=== PATIENT | male | born 1935 | race Caucasian/White ===

== ENCOUNTER → 2018-01-02 10:30 | Outpatient (CLI) | payer MEDICARE, BC, SELFPAY | PROVIDERS: PCP Emergency Medicine; Visit Provider Urology | DX: N40.1 Benign prostatic hyperplasia with lower urinary tract symptoms (principal); R33.8 Other retention of urine; N39.41 Urge incontinence | CPT/HCPCS: 99213 ==

== ENCOUNTER → 2018-01-30 13:59 | Outpatient (BNVA) | payer MEDICARE, BC, SELFPAY | PROVIDERS: Visit Provider Urology | DX: R97.20 Elevated prostate specific antigen [PSA] (principal); N40.1 Benign prostatic hyperplasia with lower urinary tract symptoms; N13.8 Other obstructive and reflux uropathy | CPT/HCPCS: 99213 ==

== ENCOUNTER → 2018-09-25 12:40 | Outpatient (BNVA) | payer MEDICARE, BC, SELFPAY | PROVIDERS: PCP Emergency Medicine; Visit Provider Urology | DX: R97.20 Elevated prostate specific antigen [PSA] (principal); R35.1 Nocturia | CPT/HCPCS: 99213 ==

== ENCOUNTER 2018-09-25 13:43 | Outpatient (CLI) | payer MEDICARE, BC, SELFPAY ==
[2018-09-26 09:49] LABS: PSA, Diagnostic 10.4 ng/ml (0-6.5)
== END 2018-09-25 14:03 ==
PROVIDERS: PCP Emergency Medicine; Visit Provider Urology
DX: N40.1 Benign prostatic hyperplasia with lower urinary tract symptoms (principal)
CPT/HCPCS: 36415; 99213; 84153

== ENCOUNTER → 2019-01-22 13:04 | Outpatient (BNVA) | payer MEDICARE, BC, SELFPAY | PROVIDERS: PCP Emergency Medicine; Visit Provider Nurse Practitioner Gerontology | DX: R97.20 Elevated prostate specific antigen [PSA] (principal); N40.1 Benign prostatic hyperplasia with lower urinary tract symptoms; N13.8 Other obstructive and reflux uropathy | CPT/HCPCS: 51798; 99213 ==

== ENCOUNTER 2019-09-18 03:32 | Outpatient (CLI) | payer MEDICARE, BC, SELFPAY ==
[2019-09-19 08:33] LABS: PSA, Screening 8.6 ng/mL (0.0-6.5)
== END 2019-09-18 03:52 ==
PROVIDERS: Nurse Practitioner Gerontology; PCP Emergency Medicine; Visit Provider Urology
DX: R97.20 Elevated prostate specific antigen [PSA] (principal); Z12.5 Encounter for screening for malignant neoplasm of prostate
CPT/HCPCS: 36415; 84153

== ENCOUNTER → 2019-09-24 12:58 | Outpatient (BNVA) | payer MEDICARE, BC, SELFPAY | PROVIDERS: PCP Emergency Medicine; Referring Provider Emergency Medicine; Visit Provider Urology | DX: N40.1 Benign prostatic hyperplasia with lower urinary tract symptoms (principal); N13.8 Other obstructive and reflux uropathy; R97.20 Elevated prostate specific antigen [PSA] | CPT/HCPCS: 99213 ==

== ENCOUNTER → 2019-10-22 13:27 | Outpatient (BNVA) | payer MEDICARE, BC, SELFPAY | PROVIDERS: PCP Emergency Medicine; Referring Provider Emergency Medicine; Visit Provider Urology | DX: N40.1 Benign prostatic hyperplasia with lower urinary tract symptoms (principal); N13.8 Other obstructive and reflux uropathy; R35.0 Frequency of micturition | CPT/HCPCS: 99213 ==

== ENCOUNTER → 2019-11-22 14:26 | Outpatient (BNVA) | payer MEDICARE, BC, SELFPAY | PROVIDERS: PCP Emergency Medicine; Referring Provider Emergency Medicine; Visit Provider Urology | DX: N40.1 Benign prostatic hyperplasia with lower urinary tract symptoms (principal); N13.8 Other obstructive and reflux uropathy | CPT/HCPCS: 99213 ==

== ENCOUNTER 2020-02-21 01:49 | Outpatient (CLI) | payer MEDICARE, BC, SELFPAY | END 2020-02-21 02:09 | PROVIDERS: PCP Emergency Medicine; Visit Provider Emergency Medicine | DX: N40.1 Benign prostatic hyperplasia with lower urinary tract symptoms (principal); N13.8 Other obstructive and reflux uropathy; I10 Essential (primary) hypertension; R97.20 Elevated prostate specific antigen [PSA] | CPT/HCPCS: 99213 ==

== ENCOUNTER 2020-02-21 10:32 | Outpatient (REF) | payer MEDICARE, BC, SELFPAY ==
[2020-02-21 11:32] LABS: Calculated LDL 75 mg/dL (<100); Cholesterol 140 mg/dL (<200); HDL Cholesterol 47 mg/dL (40-60); Triglyceride 92 mg/dL (<150)
[2020-02-21 18:11] LABS: PSA, Diagnostic 8.9 ng/mL (0.0-6.5)
== END 2020-02-21 10:52 ==
LOC: LBN 10:32
PROVIDERS: PCP Emergency Medicine; Visit Provider Urology
DX: I10 Essential (primary) hypertension (principal); R97.20 Elevated prostate specific antigen [PSA]
CPT/HCPCS: 80061; 84153

== ENCOUNTER 2020-03-09 11:09 | Outpatient (CLI) | payer MEDICARE, BC, SELFPAY ==
--- NOTE | 2020-03-09 10:45 | DI.RAD_ITS ---
EXAM: XR SHOULDER LT COMPLETE 2+V CLINICAL HISTORY: left shoulder pain. TECHNIQUE: 2D digital imaging was performed. COMPARISON: No exams were available for comparison FINDINGS: BONES: No acute fracture is present. No bony destructive lesion is seen. JOINTS: Mild degenerative changes are seen at the glenohumeral and acromioclavicular joints. SOFT TISSUE: Normal. IMPRESSION: Degenerative changes of the left shoulder. DATA REPOSITORY: RADIATION DOSE DELIVERED:
--- NOTE | 2020-03-09 10:45 | DI.RAD_ITS ---
EXAM: XR SHOULDER RT COMPLETE 2+V CLINICAL HISTORY: right shoulder pain. TECHNIQUE: 2D digital imaging was performed. COMPARISON: No exams were available for comparison FINDINGS: BONES: No acute fracture is present. No bony destructive lesion is seen. JOINTS: Mild degenerative changes are seen at the acromioclavicular and glenohumeral joints. There i s no dislocation. SOFT TISSUE: Normal. IMPRESSION: Mild degenerative changes of the right shoulder. DATA REPOSITORY: RADIATION DOSE DELIVERED:
== END 2020-03-09 11:29 ==
PROVIDERS: PCP Emergency Medicine; Referring Provider Emergency Medicine; Visit Provider Student in an Organized Health Care Education/Training Program
DX: M19.011 Primary osteoarthritis, right shoulder (principal); M19.012 Primary osteoarthritis, left shoulder
CPT/HCPCS: 99203; 99214; 73030

== ENCOUNTER 2020-04-03 03:40 | Outpatient (CLI) | payer MEDICARE, BC, SELFPAY ==
[2020-04-04 12:05] LABS: SARS-CoV-2 RNA Not Detected (NotDetected); SARS-CoV-2 RNA Source Nasal/Nares
== END 2020-04-03 04:00 ==
PROVIDERS: PCP Emergency Medicine; Visit Provider Student in an Organized Health Care Education/Training Program
DX: Z11.59 Encounter for screening for other viral diseases (principal); Z01.818 Encounter for other preprocedural examination
CPT/HCPCS: U0003

== ENCOUNTER 2020-04-08 08:51 | Day surgery (SDC) | payer MEDICARE, BC, SELFPAY ==
[2020-04-08] VITALS (10 sets, daily range): BP systolic 112–149; BP diastolic 56–81; PULSE 50–87; RESP 14–18; TEMP 36.1–36.7; O2SAT 93–99
[2020-04-08] MEDS: Lactated Ringers 1,000 ML 80 ML IV (09:35)
--- NOTE | 2020-04-08 09:58 | PDOC.DSDIS_ITS ---
Discharge Plan Disposition Patient Disposition: HOME Condition: Good Discharge Details Reason For Visit: Right Rotator Cuff Tendinitis and SLAP tear Attending Provider: Kofi Bernard Primary Care Provider: Jean-Pierre Espino Home Meds and New Rx's Prescriptions: New acetaminophen 500 mg tablet 1,000 mg PO Q8H PRN (Reason: pain) Qty: 90 RF: 3 ibuprofen 600 mg tablet 600 mg PO TID PRNQty: 90 RF: 3 oxycodone 5 mg tablet 5 mg PO Q6H PRN PRNQty: 12 RF: 0 Continued tamsulosin 0.4 mg capsule 0.8 mg PO DAILY Qty: 180 RF: 3 potassium chloride 10 mEq capsule, extended release 10 meq PO DAILY RF: 0 losartan 100 mg tablet 100 mg PO DAILY RF: 0 hydrochlorothiazide 25 mg tablet 25 mg PO DAILY RF: 0 amlodipine 5 mg tablet 5 mg PO DAILY RF: 0 Centrum Silver Men 300-600-300 mcg tablet 1 tab PO DAILY RF: 0 magnesium 250 mg tablet 250 mg PO DAILY RF: 0 solifenacin [Vesicare] 10 mg tablet 10 mg PO DAILY Qty: 90 RF: 4 melatonin 5 MG tablet 5 mg PO HS RF: 0 cod liver oil (bulk) 1 ML oil 1 ml Miscellaneous DAILY RF: 0 pravastatin 40 mg tablet 40 mg PO HS Qty: 90 RF: 3 aspirin [Aspir-81] 81 MG tablet,delayed release (DR/EC) 81 mg PO DAILY RF: 0 diphenhydramine-acetaminophen [Tylenol PM Extra Strength] 1 EACH tablet 1 tab PO HS RF: 0 Discharge Instructions Stand Alone Forms: Marco Antonio Wyatt w/BT Referrals: Kofi Bernard MD [ [facility] ST[facility]FF [facility]YSICIAN] - Equipment/Supplies: Sling Activity:: Gentle activity as tolerated but no lifting > 3 lbs Remove Dressings/Wound Care:: 72 hours Shower/Bathe:: 72 hours Diet:: As Tolerated Discharge Orders Discharge Orders: Discharge Order (Routine); Ordered 04/08/20 Ordered By: Kofi Bernard DS: Diagnosis Discharge Diagnosis (1) Right rotator cuff tear: Status: Acute (2) Biceps tendinopathy of right upper extremity: Status: Acute
[2020-04-08] MEDS: ceFAZolin 2 GM/50 ML BAG IVPB (10:20)
[2020-04-08] MEDS: EPINEPHrine 30 MG/30 ML VIAL (11:05)
--- NOTE | 2020-04-09 07:59 | ROE_ITS ---
Date of service: 04/08/20 Time of Service: 11:59 Operative Note Operative Note DATE OF PROCEDURE: 04/08/20 PRE-OP DIAGNOSIS: Right SLAP Tear POST-OP DIAGNOSIS: same Right partial articular sided and bursal sided tear of superior rotator cuff and anterolateral spur PROCEDURE: - Extensive debridement of anterior and posterior glenohumeral joint and rotator cuff - Sub-pectoral biceps tenodesis SURGEON: Kofi Bernard [employer] WORKER: Saira Castro ANESTHESIA: GETA and regional ESTIMATED BLOOD LOSS: 0 PATHOLOGY: none sent TOURNIQUET TIME: 0 COMPLICATIONS: None Patient was transported to: PACU Patient's condition: stable Indications: I have seen Diaz in clinic for a painful shoulder. Pathology was confirmed based on MRI and exam findings. Nonoperative measures were exhausted but disability and pain persisted. I discussed shoulder arthroscopy and procedures. I reviewed the risks of the procedures to include, but not limited to, bleeding, infection, pain, stiffness, damage to nerves or vessels, recurrence, hardware failure, blood clot. Despite these risks, the patient elected to proceed. Findings: A diagnostic arthroscopy was performed with the following findings: Articular Side - Glenohumeral Joint: Very minimal arthritic changes seen within the glenohumeral joint - Labrum: Significant inflammatory changes and fraying seen of the labrum anteriorly to superiorly - Cuff: Mild articular sided tearing of the supraspinatus attachment, approximately 4 mm in depth - Biceps: Inflammatory changes throughout the biceps, fraying of the biceps, fraying of the anchor Subacromial Side - Bursal: Dense inflammatory changes, and bursitis. - Rotator Cuff: Mild fraying at the posterior aspect of the supraspinatus between infraspinatus and supraspinatus but without any deep penetration more than 4 mm and no connection to the articular sided tear - Mild anterolateral spurring Procedure Description: Surendra was greeted in the preoperative holding area where the correct side was identified and marked. The consent was reviewed with the patient and signed. The history and physical was updated. All questions were answered. He was taken back to the PACU for administration of an intrascalene nerve block. Surendra was then taken to the operating room. The patient was placed into the supine position on the operating room table. A general anesthetic was administered. He was then positioned in the beach chair position. All bony prominences were well padded. The head was placed in a foam barrel header in a neutral position. Prophylactic antibiotics in the form of cefazolin were administered. The right arm/shoulder was then prepped with Chloraprep and draped in a standard fashion with stockinette and shoulder drape. A timeout to confirm correct identity, side and site, procedure, allergies, anesthesia, and medical concerns was performed. The arm was placed into a pneumatic coelho, [id number]. The shoulder arthroscopy was then performed. The glenohumeral joint was injected with 20 cc of normal saline with good flow back. A standard posterior portal was made and the joint was entered atraumatically with a blunt arthroscope. Once inside we had good visualization of the structures of the glenohumeral joint. An anterior portal was established with spinal needle localization. A 6.5 mm cannula was inserted. A probe was then used to perform a diagnostic arthroscopy. Notable inflammatory change was seen throughout the interior of the joint. There is noted to be only minimal arthritic change within the glenohumeral joint. The labrum was significantly frayed anteriorly and superiorly including the anchor of the biceps. There were no loose bodies in the inferior pouch. The superior rotator cuff was partially torn at the insertion of the supraspinatus. This partial tear was debrided and showed at most 4 mm of depth of tear with healthy attached tissues laterally. The biceps tendon had notable inflammatory change throughout its length with some fraying especially towards the anchor. The subscapularis was intact. A biceps tenotomy was performed using electrocautery. I used with electrocautery and the shaver to debride the inflammatory changes seen within the joint on the undersurface of the rotator cuff. I also debrided the rotator interval and fully evaluated subscapularis attachment. The biceps tenodesis was then performed. With the arm and some slight external rotation abduction pectoralis major tendon was identified. A 2 cm incision was made overlying the insertion to the humerus. Sharp dissection was carried onto the skin. Blunt dissection was carried down to the fascia the biceps musculature. This was entered with a tenotomy scissors. The biceps groove was palpable and the biceps tendon was palpable. It was withdrawn from the wound using Allis clamp and finger dissection. Once the biceps tendon was out of the arm the biceps groove was prepared using a rasp. A Mitek Lupine anchor was inserted into the biceps groove at the level of the pectoralis major insertion. This was tested to make sure had excellent fixation into the bone. Using a free needle I then placed a locking Krak?w stitch and each side of the biceps tendon using one limb from each suture at the level of the muscular tendinous junction and moving proximally. Excess tendon was then cut. Using the free suture limb I then shuttled the tendon down to the prepared surface of the humerus. It laid flat against the humerus. It was at the level of the pectoralis major tendon. The suture limbs were then tied. The wound was irrigated. The subcutaneous tissue was reapproximated with a 2-0 Vicryl. The arthroscope was then inserted into the subacromial space. The 6.5 mm cannula was placed lateral to the CA ligament. A complete bursectomy is performed anteriorly, posteriorly, and laterally with electrocautery and shaver. This had excellent exposure of the rotator cuff. The bursal side rotator cuff was fully evaluated after removal of all the dense bursa. There was some minor splitting of the fibers at the posterior aspect the supraspinatus which I think is actually the interval between supraspinatus and infraspinatus. Either way, it was no more than 4 mm in depth and had no exposed tuberosity so therefore I did not fully take this down. It did not communicate with the articular tear. There was a small anterolateral spur. Using a spinal needle a lateral portal was established. This became the viewing portal. A 5.0 mm clifton was then inserted from the posterior portal. The anterolateral corner of the acromion was then resected in plane with the posterior slope of the acromion. The scope equipment was removed from the shoulder. Excess fluid was evacuated. The portal sites were closed with 3-0 Monocryl. The wounds were dressed with Steri- Strips, 4 x 4's, ABDs, Medipore tape. A sling was applied. The patient tolerated the procedure well and was returned to the PACU in a stable condition suffering no known complication.
== END 2020-04-08 14:50 | disposition home or self-care (01) ==
PROVIDERS: PCP Emergency Medicine; Visit Provider Student in an Organized Health Care Education/Training Program
PROC: (CPT 29827; principal; 2020-04-08 10:15)
PROC: (CPT 23430; 2020-04-08 10:15)
DX: S43.431A Superior glenoid labrum lesion of right shoulder, initial encounter (principal); M19.011 Primary osteoarthritis, right shoulder; M75.111 Incomplete rotator cuff tear or rupture of right shoulder, not specified as traumatic; M75.21 Bicipital tendinitis, right shoulder; G89.18 Other acute postprocedural pain
CPT/HCPCS: 23430; 29823; 76942; L3670; J0131; J0690; J1100; J2370; J2405

== ENCOUNTER → 2020-04-20 09:11 | Outpatient (BNVA) | payer MEDICARE, BC, SELFPAY | PROVIDERS: PCP Emergency Medicine; Referring Provider Emergency Medicine; Visit Provider Student in an Organized Health Care Education/Training Program | DX: Z47.89 Encounter for other orthopedic aftercare (principal); M67.813 Other specified disorders of tendon, right shoulder ==

== ENCOUNTER → 2020-05-18 09:32 | Outpatient (BNVA) | payer MEDICARE, BC, SELFPAY | PROVIDERS: PCP Emergency Medicine; Referring Provider Emergency Medicine; Visit Provider Student in an Organized Health Care Education/Training Program | DX: Z47.89 Encounter for other orthopedic aftercare (principal) ==

== ENCOUNTER → 2020-06-29 13:49 | Outpatient (BNVA) | payer MEDICARE, BC, SELFPAY | PROVIDERS: PCP Emergency Medicine; Referring Provider Emergency Medicine; Visit Provider Student in an Organized Health Care Education/Training Program | DX: Z47.89 Encounter for other orthopedic aftercare (principal); M65.332 Trigger finger, left middle finger | CPT/HCPCS: 20550; J1040 ==

== ENCOUNTER 2020-08-20 03:00 | Outpatient (CLI) | payer MEDICARE, BC, SELFPAY ==
[2020-08-20 18:11] LABS: PSA, Diagnostic 9.5 ng/mL (0.0-6.5)
== END 2020-08-20 03:01 | disposition home or self-care (01) ==
LOC: LOS 03:00
PROVIDERS: PCP Emergency Medicine; Visit Provider Urology
DX: R97.20 Elevated prostate specific antigen [PSA] (principal); N40.1 Benign prostatic hyperplasia with lower urinary tract symptoms; N13.8 Other obstructive and reflux uropathy
CPT/HCPCS: 36415; 84153

== ENCOUNTER → 2020-08-28 14:24 | Outpatient (BNVA) | payer MEDICARE, BC, SELFPAY | PROVIDERS: PCP Emergency Medicine; Referring Provider Emergency Medicine; Visit Provider Urology | DX: R97.20 Elevated prostate specific antigen [PSA] (principal) | CPT/HCPCS: 99213 ==

== ENCOUNTER 2021-01-07 03:37 | Outpatient (CLI) | payer MEDICARE, BC, SELFPAY ==
[2021-01-07 18:36] LABS: PSA, Diagnostic 9.1 ng/mL (0.0-6.5)
== END 2021-01-07 03:38 | disposition home or self-care (01) ==
LOC: LBO 03:38
PROVIDERS: PCP Emergency Medicine; Visit Provider Urology
DX: R97.20 Elevated prostate specific antigen [PSA] (principal)
CPT/HCPCS: 36415; 84153

== ENCOUNTER → 2021-02-03 15:26 | Outpatient (BNVA) | payer MEDICARE, BC, SELFPAY | PROVIDERS: PCP Emergency Medicine; Referring Provider Emergency Medicine; Visit Provider Nurse Practitioner Gerontology | DX: N40.1 Benign prostatic hyperplasia with lower urinary tract symptoms (principal); N13.8 Other obstructive and reflux uropathy; R97.20 Elevated prostate specific antigen [PSA] | CPT/HCPCS: 99214 ==

== ENCOUNTER 2021-09-14 02:02 | Outpatient (CLI) | payer MEDICARE, BC, SELFPAY ==
[2021-09-15 18:10] LABS: PSA, Diagnostic 9.3 ng/mL (<=6.5)
== END 2021-09-14 02:03 | disposition home or self-care (01) ==
LOC: LBO 02:02
PROVIDERS: Nurse Practitioner Gerontology; PCP Family Medicine; Visit Provider Urology
DX: R97.20 Elevated prostate specific antigen [PSA] (principal)
CPT/HCPCS: 36415; 84153

== ENCOUNTER → 2021-09-22 14:58 | Outpatient (BNVA) | payer MEDICARE, BC, SELFPAY | PROVIDERS: PCP Family Medicine; Referring Provider Family Medicine; Visit Provider Nurse Practitioner Gerontology | DX: N40.1 Benign prostatic hyperplasia with lower urinary tract symptoms (principal); N13.8 Other obstructive and reflux uropathy; R97.20 Elevated prostate specific antigen [PSA] | CPT/HCPCS: 51798; 99214 ==

== ENCOUNTER 2021-12-20 02:43 | Outpatient (CLI) | payer MEDICARE, BC, SELFPAY ==
[2021-12-20 12:42] LABS: Anion Gap 10.3 mmol/L (3-11); BUN 15 mg/dL (7-18); CO2 26.7 mmol/L (21.0-32.0); CREATININE 0.9 mg/dL (0.70-1.30); Chloride 108 mmol/L (98-107); Glucose 94 mg/dL (74-106); Potassium 3.9 mmol/L (3.5-5.1); Sodium 145 mmol/L (136-145)
[2021-12-20 12:47] LABS: ALT 29 U/L (16-63); Calculated LDL 73 mg/dL (<100); Cholesterol 148 mg/dL (<200); HDL Cholesterol 56 mg/dL (40-60); Triglyceride 95 mg/dL (<150)
== END 2021-12-20 02:44 | disposition home or self-care (01) ==
LOC: LOS 02:43
PROVIDERS: Family Medicine; PCP Family Medicine; Visit Provider Nurse Practitioner
DX: I10 Essential (primary) hypertension (principal); E78.5 Hyperlipidemia, unspecified
CPT/HCPCS: 36415; 80048; 80061; 84460

== ENCOUNTER → 2021-12-27 14:58 | Outpatient (BNVA) | payer MEDICARE, BC, SELFPAY | PROVIDERS: PCP Family Medicine; Referring Provider Family Medicine; Visit Provider Student in an Organized Health Care Education/Training Program | DX: M65.341 Trigger finger, right ring finger (principal) | CPT/HCPCS: 99213 ==

== ENCOUNTER → 2022-01-11 14:58 | Outpatient (BNVA) | payer MEDICARE, BC, SELFPAY | PROVIDERS: PCP Family Medicine; Referring Provider Family Medicine; Visit Provider Nurse Practitioner Gerontology | DX: R35.0 Frequency of micturition (principal); N40.1 Benign prostatic hyperplasia with lower urinary tract symptoms; N13.8 Other obstructive and reflux uropathy; R97.20 Elevated prostate specific antigen [PSA] | CPT/HCPCS: 51798; 99214 ==

== ENCOUNTER 2022-01-18 03:50 | Outpatient (CLI) | payer MEDICARE, BC, SELFPAY ==
[2022-01-19 09:59] LABS: PSA, Diagnostic 8.3 ng/mL (<=6.5)
== END 2022-01-18 03:51 | disposition home or self-care (01) ==
LOC: LBO 03:50
PROVIDERS: Nurse Practitioner Gerontology; PCP Family Medicine; Visit Provider Family Medicine
DX: N13.8 Other obstructive and reflux uropathy (principal); N40.1 Benign prostatic hyperplasia with lower urinary tract symptoms; R97.20 Elevated prostate specific antigen [PSA]
CPT/HCPCS: 36415; 84153

== ENCOUNTER → 2022-03-03 13:49 | Outpatient (BNVA) | payer MEDICARE, BC, SELFPAY | PROVIDERS: PCP Family Medicine; Referring Provider Family Medicine; Visit Provider Nurse Practitioner Gerontology | DX: R35.0 Frequency of micturition (principal); N40.1 Benign prostatic hyperplasia with lower urinary tract symptoms; N13.8 Other obstructive and reflux uropathy; R97.20 Elevated prostate specific antigen [PSA] | CPT/HCPCS: 51798; 99214 ==

== ENCOUNTER → 2022-09-19 13:25 | Outpatient (BNVA) | payer MEDICARE, BC, SELFPAY | PROVIDERS: PCP Family Medicine; Referring Provider Family Medicine; Visit Provider Nurse Practitioner Gerontology | DX: N40.1 Benign prostatic hyperplasia with lower urinary tract symptoms (principal); N13.8 Other obstructive and reflux uropathy; R97.20 Elevated prostate specific antigen [PSA] | CPT/HCPCS: 51798; 99213 ==

== ENCOUNTER → 2023-02-28 13:54 | Outpatient (BNVA) | payer MEDICARE, BC, SELFPAY | PROVIDERS: PCP Family Medicine; Referring Provider Family Medicine; Visit Provider Nurse Practitioner Gerontology | DX: N40.1 Benign prostatic hyperplasia with lower urinary tract symptoms (principal); N13.8 Other obstructive and reflux uropathy; R97.20 Elevated prostate specific antigen [PSA] | CPT/HCPCS: 51798; 99215 ==

== ENCOUNTER 2023-04-24 03:25 | Outpatient (CLI) | payer MEDICARE, BC, SELFPAY ==
[2023-04-24 15:11] LABS: Anion Gap 7.9 mmol/L (3-11); BUN 17 mg/dL (7-18); CO2 29.1 mmol/L (21.0-32.0); Calcium 9.7 mg/dL (8.5-10.1); Calculated LDL 65 mg/dL (<100); Chloride 107 mmol/L (98-107); Cholesterol 139 mg/dL (<200); Estimated GFR 72.84 (mL/min/1.73m2); Glucose 95 mg/dL (74-106); HDL Cholesterol 62 mg/dL (40-60); Magnesium 2.1 mg/dL (1.8-2.4); Potassium 3.9 mmol/L (3.5-5.1); Sodium 144 mmol/L (136-145); Triglyceride 61 mg/dL (<150)
== END 2023-04-24 03:26 | disposition home or self-care (01) ==
LOC: LBO 03:25
PROVIDERS: PCP Family Medicine; Visit Provider Family Medicine
DX: E87.1 Hypo-osmolality and hyponatremia (principal); E78.5 Hyperlipidemia, unspecified; E83.42 Hypomagnesemia
CPT/HCPCS: 36415; 80048; 80061; 83735

== ENCOUNTER → 2023-08-29 14:00 | Outpatient (BNVA) | payer MEDICARE, BC, SELFPAY | PROVIDERS: PCP Family Medicine; Referring Provider Family Medicine; Visit Provider Nurse Practitioner Gerontology | DX: N40.1 Benign prostatic hyperplasia with lower urinary tract symptoms (principal); N13.8 Other obstructive and reflux uropathy; R97.20 Elevated prostate specific antigen [PSA] | CPT/HCPCS: 51798; 99215 ==

== ENCOUNTER 2023-09-18 08:42 | Outpatient (CLI) | payer MEDICARE, BC, SELFPAY ==
--- NOTE | 2023-09-18 08:30 | RT.EKG_ITS ---
APPROVED REPORT Exam: Resting ECG Reason for Exam: bradycardia Patient Location: O HR:60 bpm ECG Measurements Heart Rate 60 AXIS AL 197 P -2 QRSd 125 QRS -53 QT 439 T -2 QTc 439 Conclusion Sinus rhythm...normal P axis, V-rate 50- 99 Right bundle branch block...QRSd>120, terminal axis(90,270) LAFB Baseline wander in lead(s) V1,V2
== END 2023-09-18 08:43 | disposition home or self-care (01) ==
LOC: DI.CARD 08:42
PROVIDERS: PCP Family Medicine; Visit Provider Internal Medicine Cardiovascular Disease
DX: I45.10 Unspecified right bundle-branch block (principal); R00.1 Bradycardia, unspecified
CPT/HCPCS: 93010

== ENCOUNTER → 2023-09-18 11:15 | Outpatient (BNVA) | payer MEDICARE, BC, SELFPAY | PROVIDERS: PCP Family Medicine; Referring Provider Family Medicine; Visit Provider Internal Medicine Cardiovascular Disease | DX: I10 Essential (primary) hypertension (principal); I45.10 Unspecified right bundle-branch block | CPT/HCPCS: 93005; 99214 ==

== ENCOUNTER 2024-01-03 10:01 | Outpatient (REF) | payer MEDICARE, BC, SELFPAY ==
--- NOTE | 2024-01-03 09:50 | SKI_PTH ---
PATIENT: Diaz Braun LOC: [facility] U#:[id number] AGE/SX: 88/M ROOM: RE01/03/[address]: Edwina Guzman : 1935 BED: DIS: 01/03/2024 SPEC #: [id number] RECD: 01/03/24 13:17 STATUS: LEONARDO REQ #: [id number] PARVEZ: 01/03/24 09:[address]: Edwina Guzman DEPT: Surgical Specimen RECD BY: Natalie Blount ENTERED: 01/03/24 13:18 SP TYPE: DENY NAIR DR: Barak Wynne MD Tissues: 1 - SKIN BIOPSY(SHAVE/PUNCH) Procedures: SKIN LEVEL 4 Comments: [id number]
== END 2024-01-03 10:02 | disposition home or self-care (01) ==
LOC: LBN 10:01
PROVIDERS: PCP Family Medicine; Visit Provider Family Medicine
DX: C44.212 Basal cell carcinoma of skin of right ear and external auricular canal (principal)
CPT/HCPCS: 88305

== ENCOUNTER → 2024-02-27 14:45 | Outpatient (BNVA) | payer MEDICARE, BC, SELFPAY | PROVIDERS: PCP Family Medicine; Referring Provider Family Medicine; Visit Provider Nurse Practitioner Gerontology | DX: N40.1 Benign prostatic hyperplasia with lower urinary tract symptoms (principal); N13.8 Other obstructive and reflux uropathy; R97.20 Elevated prostate specific antigen [PSA] | CPT/HCPCS: 51798; 99215 ==

== ENCOUNTER 2024-03-05 11:59 | Outpatient (REF) | payer MEDICARE, BC, SELFPAY ==
--- NOTE | 2024-03-05 11:30 | SKI_PTH ---
PATIENT: Diaz Braun LOC: [facility] U#:[id number] AGE/SX: 88/M ROOM: RE03/05/[address]: Macario Chaney MD : 1935 BED: DIS: 03/05/2024 SPEC #: [id number] RECD: 03/05/24 17:52 STATUS: LEONARDO REQ #: [id number] PARVEZ: 03/05/24 11:[address]: Macario Chaney DEPT: Surgical Specimen RECD BY: Natalie Blount ENTERED: 03/05/24 17:53 SP TYPE: SKI OTHR DR: Barak Wynne MD Tissues: 1 - SKIN BIOPSY(SHAVE/PUNCH) Procedures: SKIN LEVEL 4 Comments: [id number]
== END 2024-03-05 12:00 | disposition home or self-care (01) ==
LOC: LBN 11:59
PROVIDERS: PCP Family Medicine; Visit Provider Otolaryngology
DX: C44.41 Basal cell carcinoma of skin of scalp and neck (principal)
CPT/HCPCS: 88305

== ENCOUNTER 2024-04-15 01:30 | Outpatient (CLI) | payer MEDICARE, BC, SELFPAY ==
--- NOTE | 2024-04-15 12:51 | DI.RAD_ITS ---
Exam(s) XR SCAPULA RT EXAM: XR SCAPULA RT CLINICAL HISTORY: rt thoracic and rt scapular pain for months,. TECHNIQUE: 2D digital imaging was performed. Two views. COMPARISON: CR XR SHOULDER RT COMPLETE 2+V from 03/09/2020 FINDINGS: BONES: No acute fracture is present. No bony destructive lesion is seen. Spurring and subchondral cy sts are present at the greater tuberosity. No abnormality seen involve scapula. JOINTS: No dislocation present. Glenohumeral joint space is maintained. There is spurring at the gl enoid. AC joint shows narrowing and spurring. Ovoid calcification seen in the subcoracoid bursa. SOFT TISSUE: Normal. IMPRESSION: Degenerative changes of the glenohumeral joint and AC joint. No abnormality identified of the scapul a. DATA REPOSITORY: RADIATION DOSE DELIVERED:
--- NOTE | 2024-04-15 12:51 | DI.RAD_ITS ---
Exam(s) XR THORACIC SPINE COMPLETE EXAM: XR THORACIC SPINE COMPLETE CLINICAL HISTORY: rt mid back pain.M54.6. TECHNIQUE: 2D digital imaging was performed. Three views. COMPARISON: No exams were available for comparison FINDINGS: BONES: There is no fracture or destructive lesion. The vertebral bodies and posterior elements are un remarkable. ALIGNMENT: Within normal limits. DISKS: Mild narrowing of the anterior disc spaces. Endplate osteophytes are noted throughout, greate r projecting toward the right in the mid to lower thoracic region. There is a mild dextroscoliosis. SOFT TISSUE: Visualized lungs are clear. 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 Mild scoliosis. DATA REPOSITORY: RADIATION DOSE DELIVERED:
== END 2024-04-15 01:50 ==
LOC: DI 01:30
PROVIDERS: PCP Family Medicine; Visit Provider Family Medicine
DX: M51.34 Other intervertebral disc degeneration, thoracic region (principal)
CPT/HCPCS: 72072; 73010

== ENCOUNTER → 2024-08-27 14:56 | Outpatient (BNVA) | payer MEDICARE, BC, SELFPAY | PROVIDERS: PCP Family Medicine; Referring Provider Family Medicine; Visit Provider Nurse Practitioner Gerontology | DX: N40.1 Benign prostatic hyperplasia with lower urinary tract symptoms (principal); N13.8 Other obstructive and reflux uropathy; R97.20 Elevated prostate specific antigen [PSA]; R39.9 Unspecified symptoms and signs involving the genitourinary system; N32.81 Overactive bladder | CPT/HCPCS: 51798; 99215 ==

== ENCOUNTER → 2024-09-16 09:54 | Outpatient (BNVA) | payer MEDICARE, BC, SELFPAY | PROVIDERS: PCP Family Medicine; Referring Provider Family Medicine; Visit Provider Registered Nurse | DX: I10 Essential (primary) hypertension (principal); I45.10 Unspecified right bundle-branch block | CPT/HCPCS: 99214 ==

== ENCOUNTER 2024-10-18 01:40 | Outpatient (CLI) | payer MEDICARE, BC, SELFPAY ==
[2024-10-18 13:31] LABS: Anion Gap 7.1 mmol/L (3-11); BUN 14 mg/dL (7-18); CO2 29.9 mmol/L (21.0-32.0); CREATININE 1.3 mg/dL (0.70-1.30); Calcium 9.2 mg/dL (8.5-10.1); Calculated LDL 48 mg/dL (<100); Chloride 106 mmol/L (98-107); Cholesterol 109 mg/dL (<200); Estimated GFR 52.84 (mL/min/1.73m2); Glucose 128 mg/dL (74-106); HDL Cholesterol 55 mg/dL (>or=40); Magnesium 2.1 mg/dL (1.8-2.4); Potassium 3.8 mmol/L (3.5-5.1); Sodium 143 mmol/L (136-145); Triglyceride 34 mg/dL (<150)
== END 2024-10-18 01:41 | disposition home or self-care (01) ==
LOC: LOS 01:41
PROVIDERS: PCP Family Medicine; Visit Provider Family Medicine
DX: E87.1 Hypo-osmolality and hyponatremia (principal); E78.5 Hyperlipidemia, unspecified; E83.42 Hypomagnesemia
CPT/HCPCS: 36415; 80048; 80061; 83735

== ENCOUNTER → 2025-02-27 14:54 | Outpatient (BNVA) | payer MEDICARE, BC, SELFPAY | PROVIDERS: PCP Family Medicine; Referring Provider Family Medicine; Visit Provider Nurse Practitioner Gerontology | DX: N40.1 Benign prostatic hyperplasia with lower urinary tract symptoms (principal); N13.8 Other obstructive and reflux uropathy; R97.20 Elevated prostate specific antigen [PSA]; N32.81 Overactive bladder | CPT/HCPCS: 99215 ==